=== PATIENT | female | born 1935 | race Caucasian/White ===

== ENCOUNTER 2016-09-10 14:02 | Inpatient (IN) | payer MEDICARE ==
[2016-09-10] MEDS ORDERED: methylPREDNISolone SOD SUCCI 125 MG/2 ML VIAL IV STA (14:49)
[2016-09-10] MEDS ORDERED: IPRATROPIUM-ALBUTEROL 3 ML NEB INHALATION STA (14:49)
[2016-09-10] MEDS ORDERED: SODIUM CHLORIDE 0.9% 500 ML IV STA (14:49)
[2016-09-10] MEDS ORDERED: SODIUM CHLORIDE 0.9% 1,000 ML IV STA (14:49)
--- NOTE | 2016-09-10 15:20 | ED ---
General Adult HPI - General Chief complaint: Shortness of Breath Stated complaint: SOB/sent by Dr Trotter Time Seen by Provider: 09/10/16 14:14 Source: patient, RN notes reviewed, old records reviewed Mode of arrival: wheelchair Limitations: no limitations - History of Present Illness Initial comments: This is a 81-year-old female ER for evaluation of shortness of breath, severe shortness of breath with exertion. Patient is comp. Restrained heart history including A. fib with RVR, COPD and end-stage emphysema, right-sided lung CA with no treatment. Patient has had increasing exertional shortness of breath, physical point where she cannot make it from couch to chair. From bed to bathroom. Patient becomes significantly short of breath. She is on home O2 but currently states that she is just becoming too short of breath. - Related Data Home Medications Medication Instructions Recorded Confirmed Apixaban [Eliquis] 2.5 mg PO BID 06/20/14 09/10/16 Amiodarone [Cordarone] 200 mg PO DAILY 10/02/14 09/10/16 Albuterol Sulfate [Proair Hfa] 2 puff INHALATION RT-Q4H PRN 09/10/16 09/10/16 Fluticasone/Salmeterol [Advair 1 puff INHALATION RT-BID 09/10/16 09/10/16 500-50 Diskus] Ipratropium-Albuterol Nebulize 3 ml INHALATION RT-QID 09/10/16 09/10/16 [Duoneb 0.5 mg-3 mg/3 ml Soln] Previous Rx's Medication Instructions Recorded Lisinopril [Zestril] 2.5 mg PO DAILY #30 tab 02/22/14 Metoprolol Tartrate [Lopressor] 25 mg PO TID #90 tab 02/22/14 Allergies Allergy/AdvReac Type Severity Reaction Status Date / Time codeine Allergy Dyspnea Verified 09/10/16 15:42 Iodinated Contrast Media - Allergy Rash/Hives Verified 09/10/16 15:42 Oral and Penicillins Allergy Unknown Verified 09/10/16 15:42 Childhood propoxyphene napsylate Allergy Unknown Verified 09/10/16 15:42 [From Ani-N] shellfish derived [Shellfish] Allergy Rash/Hives Verified 09/10/16 15:42 ketorolac tromethamine AdvReac Nausea Verified 09/10/16 15:42 [From Toradol] Review of Systems ROS Statement: Those systems with pertinent positive or pertinent negative responses have been documented in the HPI. ROS Other: All systems not noted in ROS Statement are negative. Past Medical History Past Medical History: Atrial Fibrillation, Asthma, COPD, Pneumonia, Pulmonary Embolus (PE), Thyroid Disorder Additional Past Medical History / Comment(s): home O2, 2L. History of Any Multi-Drug Resistant Organisms: None Reported Past Surgical History: Breast Surgery Additional Past Surgical History / Comment(s): THYROIDECTOMY, CERVICAL NECK SURGERY Past Anesthesia/Blood Transfusion Reactions: No Reported Reaction Past Psychological History: No Psychological Hx Reported Smoking Status: Former smoker Past Alcohol Use History: None Reported Past Drug Use History: None Reported - Past Family History Father Family Medical History: No Reported History Mother Family Medical History: Unable to Obtain General Exam Limitations: no limitations General appearance: alert, in distress, cachectic Head exam: Present: atraumatic, normocephalic, normal inspection Eye exam: Present: normal appearance, PERRL, EOMI. Absent: scleral icterus, conjunctival injection, periorbital swelling ENT exam: Present: mucous membranes dry Neck exam: Present: normal inspection. Absent: tenderness, meningismus, lymphadenopathy Respiratory exam: Present: normal lung sounds bilaterally, wheezes, accessory muscle use, decreased breath sounds, prolonged expiratory. Absent: respiratory distress, rales, rhonchi, stridor Cardiovascular Exam: Present: regular rate, normal rhythm, normal heart sounds. Absent: systolic murmur, diastolic murmur, rubs, gallop, clicks GI/Abdominal exam: Present: soft, normal bowel sounds. Absent: distended, tenderness, guarding, rebound, rigid Extremities exam: Present: normal inspection, full ROM, normal capillary refill. Absent: tenderness, pedal edema, joint swelling, calf tenderness Back exam: Present: normal inspection Neurological exam: Present: alert, oriented X3, CN II-XII intact Psychiatric exam: Present: normal affect, normal mood Skin exam: Present: warm, dry, intact, normal color. Absent: rash Course Vital Signs 09/10/16 09/10/16 09/10/16 14:04 14:53 15:10 Temperature 98.1 F Pulse Rate 79 76 Respiratory 20 20 Rate Blood Pressure 198/93 O2 Sat by Pulse 96 Oximetry 09/10/16 09/10/16 15:29 16:19 Temperature 98.3 F Pulse Rate 76 70 Respiratory 18 Rate Blood Pressure 180/84 O2 Sat by Pulse Oximetry - Reevaluation(s) Reevaluation #1: 09/10/16 15:22 Patient does have improvement after breathing treatment Medical Decision Making - Medical Decision Making 81 female to the ER with COPD, A. fib, lung CA, patient be admitted for COPD exacerbation and exertional dyspnea. Patient will consult pulmonary has needed. Patient was placed on breathing treatments and steroids - Lab Data Result diagrams: 09/10/16 15:10 09/10/16 15:10 Lab Results 09/10/16 09/10/16 09/10/16 Range/Units 15:10 15:10 15:10 WBC 6.8 (3.8-10.6) k/uL RBC 4.55 (3.80-5.40) m/uL Hgb 14.4 (11.4-16.0) gm/dL Hct 41.1 (34.0-46.0) % MCV 90.5 (80.0-100.0) fL MCH 31.6 (25.0-35.0) pg MCHC 35.0 (31.0-37.0) g/dL RDW 13.2 (11.5-15.5) % Plt Count 330 (150-450) k/uL Neutrophils % 84 % Lymphocytes % 8 % Monocytes % 5 % Eosinophils % 0 % Basophils % 1 % Neutrophils # 5.7 (1.3-7.7) k/uL Lymphocytes # 0.5 L (1.0-4.8) k/uL Monocytes # 0.3 (0-1.0) k/uL Eosinophils # 0.0 (0-0.7) k/uL Basophils # 0.0 (0-0.2) k/uL PT (9.0-12.0) sec INR (<1.1) APTT (22.0-30.0) sec Sodium 136 L (137-145) mmol/L Potassium 4.2 (3.5-5.1) mmol/L Chloride 91 L (98-107) mmol/L Carbon Dioxide 33 H (22-30) mmol/L Anion Gap 12 mmol/L BUN 12 (7-17) mg/dL Creatinine 0.60 (0.52-1.04) mg/dL Est GFR (MDRD) Af Amer >60 (>60 ml/min/1.73 sqM) Est GFR (MDRD) Non-Af >60 (>60 ml/min/1.73 sqM) Glucose 96 (74-99) mg/dL Calcium 9.6 (8.4-10.2) mg/dL Magnesium 1.9 (1.6-2.3) mg/dL Total Bilirubin 0.9 (0.2-1.3) mg/dL AST 33 (14-36) U/L ALT 28 (9-52) U/L Alkaline Phosphatase 108 (38-126) U/L Total Creatine Kinase 79 (30-135) U/L CK-MB (CK-2) 2.9 H* (0.0-2.4) ng/mL CK-MB (CK-2) Rel Index 3.7 Troponin I <0.012 (0.000-0.034) ng/mL NT-Pro-B Natriuret Pep pg/mL Total Protein 8.2 (6.3-8.2) g/dL Albumin 4.7 (3.5-5.0) g/dL Urine Color Urine Appearance (Clear) Urine pH (5.0-8.0) Ur Specific Franklin (1.001-1.035) Urine Protein (Negative) Urine Glucose (UA) (Negative) Urine Ketones (Negative) Urine Blood (Negative) Urine Nitrite (Negative) Urine Bilirubin (Negative) Urine Urobilinogen (<2.0) mg/dL Ur Leukocyte Esterase (Negative) Urine RBC (0-5) /hpf Urine WBC (0-5) /hpf Ur Squamous Epith Cells (0-4) /hpf Urine Mucus (None) /hpf 09/10/16 09/10/16 09/10/16 Range/Units 15:10 15:10 15:10 WBC (3.8-10.6) k/uL RBC (3.80-5.40) m/uL Hgb (11.4-16.0) gm/dL Hct (34.0-46.0) % MCV (80.0-100.0) fL MCH (25.0-35.0) pg MCHC (31.0-37.0) g/dL RDW (11.5-15.5) % Plt Count (150-450) k/uL Neutrophils % % Lymphocytes % % Monocytes % % Eosinophils % % Basophils % % Neutrophils # (1.3-7.7) k/uL Lymphocytes # (1.0-4.8) k/uL Monocytes # (0-1.0) k/uL Eosinophils # (0-0.7) k/uL Basophils # (0-0.2) k/uL PT 10.2 (9.0-12.0) sec INR 1.0 (<1.1) APTT 24.2 (22.0-30.0) sec Sodium (137-145) mmol/L Potassium (3.5-5.1) mmol/L Chloride (98-107) mmol/L Carbon Dioxide (22-30) mmol/L Anion Gap mmol/L BUN (7-17) mg/dL Creatinine (0.52-1.04) mg/dL Est GFR (MDRD) Af Amer (>60 ml/min/1.73 sqM) Est GFR (MDRD) Non-Af (>60 ml/min/1.73 sqM) Glucose (74-99) mg/dL Calcium (8.4-10.2) mg/dL Magnesium (1.6-2.3) mg/dL Total Bilirubin (0.2-1.3) mg/dL AST (14-36) U/L ALT (9-52) U/L Alkaline Phosphatase (38-126) U/L Total Creatine Kinase (30-135) U/L CK-MB (CK-2) (0.0-2.4) ng/mL CK-MB (CK-2) Rel Index Troponin I (0.000-0.034) ng/mL NT-Pro-B Natriuret Pep 1190 pg/mL Total Protein (6.3-8.2) g/dL Albumin (3.5-5.0) g/dL Urine Color Light Yellow Urine Appearance Clear (Clear) Urine pH 7.0 (5.0-8.0) Ur Specific Franklin 1.008 (1.001-1.035) Urine Protein Negative (Negative) Urine Glucose (UA) Negative (Negative) Urine Ketones Negative (Negative) Urine Blood Negative (Negative) Urine Nitrite Negative (Negative) Urine Bilirubin Negative (Negative) Urine Urobilinogen <2.0 (<2.0) mg/dL Ur Leukocyte Esterase Small H (Negative) Urine RBC <1 (0-5) /hpf Urine WBC 3 (0-5) /hpf Ur Squamous Epith Cells 1 (0-4) /hpf Urine Mucus Rare H (None) /hpf - Radiology Data Radiology results: report reviewed (Chest x-ray is negative for acute disease), image reviewed Disposition Clinical Impression: COPD exacerbation, Afib, Acute exacerbation of chronic obstructive airways disease, Lung cancer Disposition: ADMITTED IP TO THIS HOSP Condition: Fair Referrals: Alphonso Trotter DO [Primary Care Provider] - 1-2 days
[2016-09-10 15:44] LABS: Basophils % (A) 1 %; CH 30.5; CHCM 33.9; Eosinophils % (A) 0 %; HCT 41.1 % (34.0-46.0); HDW 2.75; HGB 14.4 gm/dL (11.4-16.0); Luc # (Auto) 0.14; Luc % (Auto) 2; Lymphocytes # (A) 0.5 k/uL (1.0-4.8); Lymphocytes % (A) 8 %; MCH 31.6 pg (25.0-35.0); MCV 90.5 fL (80.0-100.0); Monocytes # (A) 0.3 k/uL (0-1.0); Monocytes % (A) 5 %; Neutrophils # (A) 5.7 k/uL (1.3-7.7); Neutrophils % (A) 84 %; RBC 4.55 m/uL (3.80-5.40); RDW 13.2 % (11.5-15.5); WBC 6.8 k/uL (3.8-10.6); WBC (Perox) 6.82
[2016-09-10 15:48] LABS: Partial Thromboplastin Time 24.2 sec (22.0-30.0); Prothrombin Time 10.2 sec (9.0-12.0)
[2016-09-10 15:49] LABS: Appearance,Urine Clear (Clear); Bilirubin,Urine Negative (Negative); Glucose,Urine (UA) Negative (Negative); Ketones,Urine Negative (Negative); Leukocyte Esterase,Urine Small (Negative); Mucus,Urine Rare /hpf; Nitrite,Urine Negative (Negative); Particle Count 1118; Protein,Urine Negative (Negative); RBC,Urine <1 /hpf (0-5); Specific Gravity,Urine 1.008 (1.001-1.035); Squamous Epithelial Cell,Urine 1 /hpf (0-4); UA Billing (MACRO vs. MICRO) MICRO; Urobilinogen,Urine <2.0 mg/dL (<2.0); WBC,Urine 3 /hpf (0-5)
[2016-09-10 15:50] LABS: ALT 28 U/L (9-52); AST 33 U/L (14-36); Alkaline Phosphatase 108 U/L (38-126); Anion Gap 12 mmol/L; Blood Urea Nitrogen 12 mg/dL (7-17); Calcium 9.6 mg/dL (8.4-10.2); Carbon Dioxide 33 mmol/L (22-30); Chloride 91 mmol/L (98-107); Glucose 96 mg/dL (74-99); Magnesium 1.9 mg/dL (1.6-2.3); Non-African American GFR(MDRD) >60 (>60 ml/min/1.73 sqM); Potassium 4.2 mmol/L (3.5-5.1); Sodium 136 mmol/L (137-145); Total Bilirubin 0.9 mg/dL (0.2-1.3); Total Protein 8.2 g/dL (6.3-8.2)
--- NOTE | 2016-09-10 16:06 | XR ---
EXAMINATION TYPE: XR chest 2V DATE OF EXAM: 09/10/2016 3:59 PM COMPARISON: 08/08/2015 HISTORY: 81-year-old female difficulty breathing TECHNIQUE: PA and lateral views FINDINGS: Heart is normal size. Mild elongation of the thoracic aorta is unchanged with atherosclerotic calcifi cations. Hyperinflation with interstitial prominence. Focal right upper lobe opacity is redemonstrate d and appears to have increased in density slightly. No consolidation or pleural effusion. IMPRESSION: 1. COPD with advanced emphysema. 2. Focal right upper lobe opacity appears slightly more pronounced. Correlate with prior workup to ex clude underlying neoplasm. We note that the lesion is being followed by pulmonary on CT of 12/17/2015.
[2016-09-10 16:48] LABS: Creatine Kinase 79 U/L (30-135)
[2016-09-10 17:01] LABS: Troponin I <0.012 ng/mL (0.000-0.034)
[2016-09-10 17:02] LABS: Creatine Kinase MB 2.9 ng/mL (0.0-2.4)
[2016-09-10] MEDS: SODIUM CHLORIDE 0.9% 1,000 ML IV SCH (19:35)
[2016-09-10] MEDS: FAMOTIDINE 20 MG TAB PO SCH (20:50)
[2016-09-10] MEDS: METOPROLOL TARTRATE 25 MG TAB PO SCH (20:51)
[2016-09-10] MEDS: APIXABAN 2.5 MG TABLET PO SCH (20:51)
[2016-09-10] MEDS ORDERED: AMIODARONE 200 MG TAB PO SCH (21:00)
--- NOTE | 2016-09-10 21:58 | HP ---
DATE OF ADMISSION: 09/10/2016 Patient is a 81-year-old female who came in with complaints of shortness of breath. Patient does have a history of COPD; uses 2 L of oxygen at home. Patient at present is on 3 L. Patient was already given breathing treatments, with improvement in her symptoms. Her other main symptom is generalized weakness, which has been worsening for some time. Patient does have history of atrial fibrillation, on anticoagulation with Eliquis. Patient's heart rate is well controlled at this point of time. Patient has end-stage COPD. Patient has known right upper lung mass which has been followed as an outpatient. Biopsy was never done because of high risk of ( ). This nodule has been growing, and there is a high probability of malignancy. Patient's generalized weakness and cachexia is most probably secondary to cancer ( ) COPD. Patient although is not sure whether she has lost weight recently. ROS: All other systems were reviewed and were negative. Home medications include: 1. Eliquis. 2. Amiodarone. 3. Albuterol. 4. Fluticasone. 5. Ipratropium. 6. Lisinopril. 7. Metoprolol. ALLERGIES: 1. CODEINE. 2. IODINATED RADIOCONTRAST. 3. PROPOXYPHENE. 4. SHELLFISH. 5. KETOROLAC. Past medical history is significant for: 1. Atrial fibrillation. 2. COPD. 3. Pneumonia. 4. Pulmonary embolus in the past. 5. Hypothyroidism. 6. Breast cancer. SOCIAL HISTORY: Former smoker. Quit smoking years ago. Denied any alcohol abuse or any drug abuse. FAMILY HISTORY: Patient is not aware of her mother's or father's history. PHYSICAL EXAMINATION: VITAL SIGNS: Temperature 98.1, pulse of 76, respiratory rate of 20. Blood pressure is 198/93. Saturating at 96% on room air. GENERAL: ( ) HEENT: Pupils are round and equally reacting to light. EOMI. No scleral icterus. No conjunctival pallor. Normocephalic, atraumatic. No pharyngeal erythema. No thyromegaly. CARDIOVASCULAR: S1 and S2 present. No murmurs, rubs, or gallops. PULMONARY: Minimal expiratory wheezing was appreciated ( ) decreased air entry into bilateral lung kelley. ABDOMEN: Soft, nontender, nondistended, normoactive bowel sounds. No palpable organomegaly. MUSCULOSKELETAL: No joint swelling or deformity. EXTREMITIES: No cyanosis, clubbing, or pedal edema. NEUROLOGICAL: Gross neurological examination did not reveal any focal deficits. SKIN: No rashes. LABORATORY DATA: CBC, CMP essentially within normal limits. Bicarbonate of 33 secondary to chronic carbon dioxide retention and metabolic alkalosis. Chest x-ray was reviewed. It did not show any pneumonic process. Patient denied any cough. REVIEW OF SYSTEMS: CONSTITUTIONAL: No fever, no malaise, no fatigue. HEENT: No recent visual problems or hearing problems. Denied any sore throat. CARDIOVASCULAR: No chest pain, orthopnea, PND, no palpitations, no syncope. PULMONARY: As described in HPI. GASTROINTESTINAL: No diarrhea, no nausea, no vomiting, no abdominal pain. Normoactive bowel sounds. NEUROLOGICAL: No headaches, no weakness, no numbness. HEMATOLOGICAL: Denies any bleeding or petechiae. GENITOURINARY: Denies any burning micturition, frequency, or urgency. MUSCULOSKELETAL/RHEUMATOLOGICAL: Denies any joint pain, swelling, or any muscle pain. ENDOCRINE: Denies any polyuria or polydipsia. GENERAL: As described in HPI. The rest of the 14 point review of systems is negative. ASSESSMENT AND PLAN: 1. Acute on chronic hypercapnic respiratory failure secondary to chronic obstructive pulmonary disease exacerbation. Patient is ( ) 2. Atrial fibrillation, rate controlled. Patient will be initiated back on her amiodarone and beta rosemary along with Eliquis. 3. History of pulmonary embolism in the past. 4. Possible lung cancer with a nodule in the right upper lung which has been growing. Will consult Pulmonary regarding this. It is being followed as an outpatient by Dr. Trotter, although since its diagnosis it has kept on growing. Patient's primary care physician is Dr. Alphonso Trotter. [facility]
[2016-09-11] MEDS ORDERED: methylPREDNISolone SOD SUCCI 125 MG/2 ML VIAL IV SCH
[2016-09-11] MEDS: SYMBICORT 160-4.5 MCG INHALER INHALATION SCH ×2 (02:06→08:54)
[2016-09-11] MEDS: IPRATROPIUM-ALBUTEROL 3 ML NEB INHALATION SCH ×4 (02:06→17:30)
[2016-09-11] MEDS: SODIUM CHLORIDE 0.9% 1,000 ML IV SCH ×2 (04:53→17:16)
[2016-09-11] MEDS ORDERED: AMIODARONE 200 MG TAB PO SCH ×2 (09:00→16:00)
[2016-09-11] MEDS ORDERED: predniSONE 20 MG TAB PO SCH (09:00)
[2016-09-11 09:17] VITALS: TEMP 97.9
[2016-09-11] MEDS: METOPROLOL TARTRATE 25 MG TAB PO SCH ×2 (09:23→17:15)
[2016-09-11] MEDS: APIXABAN 2.5 MG TABLET PO SCH (09:23)
[2016-09-11] MEDS: FAMOTIDINE 20 MG TAB PO SCH (09:23)
[2016-09-11 09:34] VITALS: RESP 18
[2016-09-11 11:42] VITALS: BMI 15.5
--- NOTE | 2016-09-11 12:49 | P.CNPUL ---
History of Present Illness Consult date: 09/11/16 Requesting physician: Vineet Sherman Reason for consult: dyspnea, lung mass, abnormal CXR/CT Chief complaint: Shortness of breath History of present illness: This is a very pleasant 81-year-old female patient with a known history of atrial fibrillation,pulmonary embolism, hypothyroidism and severe oxygen dependent Gold stage IV chronic obstructive pulmonary disease. She has a remote history of smoking. She also follows with Dr. Paredes in our office and has a known right upper lung spiculated mass. According to the patient he did not feel she was a candidate for biopsy or treatment based on her poor lung condition. He did offer to send her for a second opinion to Dr. Dick at [facility] however the patient has not been able to have transportation there and had not followed up there. she presented here to the emergency room yesterday with increasing shortness of breath, cough and congestion. She does have significant shortness of breath with minimal exertion. She does at times have some hemoptysis. Her current weight is approximately 90 pounds. She is quite cachectic. Her chest x-ray reveals evidence of advanced emphysema along with a enlarging right upper lobe opacity suspicious for underlying neoplasm. Her most recent computed tomography scan of the chest was in November 2015 that revealed the mass measuring 3.4 x 3.5 cm versus initial readings in 2013 of 1.2 x 1.2 cm. Presently, the patient is seen in the oncology unit resting fairly comfortably in bed. She is dyspneic on minimal conversation. She is quite weak. She is maintaining good O2 saturations in the upper 90s on 2 L/m per nasal cannula. She's been afebrile. No leukocytosis. Bicarb 33. Review of Systems 14 point review of system was conducted. All negative other than as mentioned in the HPI. Past Medical History Past Medical History: Atrial Fibrillation, Asthma, Heart Failure, COPD, Pneumonia, Pulmonary Embolus (PE), Thyroid Disorder Additional Past Medical History / Comment(s): endstage emphysema,lung mass right lung, home O2 2l n/c per past med chart from 2012 [facility],divertivular disease, ddd, blood clots.shingles -2011, macular degeneration, bronchits, kidney stone, past allergy testing. nstemi 2014 History of Any Multi-Drug Resistant Organisms: None Reported Past Surgical History: Adenoidectomy, Breast Surgery, Tonsillectomy Additional Past Surgical History / Comment(s): partial thyroidectomy-tumor removed was benign, colonoscopy, bronchoscopy, CERVICAL NECK SURGERY, cataracts , rt breast cyst removed, lt lumpectomy-benign Past Anesthesia/Blood Transfusion Reactions: Postoperative Nausea & Vomiting ( PONV) Additional Past Anesthesia/Blood Transfusion Reaction / Comment(s): difficulty waking Past Psychological History: No Psychological Hx Reported Additional Psychological History / Comment(s): lives in own home-single staory w /2 steps. no outside services Smoking Status: Former smoker Past Alcohol Use History: None Reported Additional Past Alcohol Use History / Comment(s): started smoking at age 20 smoked 1 ppd, quit 2009 Past Drug Use History: None Reported - Past Family History Brother(s) Family Medical History: Cancer Additional Family Medical History / Comment(s): non hodgkind lymphoma Father Family Medical History: No Reported History Additional Family Medical History / Comment(s): 10 days shy of 100 years old- from "old age" Mother Family Medical History: Dementia Additional Family Medical History / Comment(s): at age 98 Medications and Allergies Home Medications Medication Instructions Recorded Confirmed Type Apixaban [Eliquis] 2.5 mg PO BID 06/20/14 09/10/16 History Amiodarone [Cordarone] 200 mg PO DAILY 10/02/14 09/10/16 History Albuterol Sulfate [Proair Hfa] 2 puff INHALATION RT-Q4H PRN 09/10/16 09/10/16 History Fluticasone/Salmeterol [Advair 1 puff INHALATION RT-BID 09/10/16 09/10/16 History 500-50 Diskus] Ipratropium-Albuterol Nebulize 3 ml INHALATION RT-QID 09/10/16 09/10/16 History [Duoneb 0.5 mg-3 mg/3 ml Soln] Allergies Allergy/AdvReac Type Severity Reaction Status Date / Time codeine Allergy Dyspnea Verified 09/10/16 15:42 Iodinated Contrast Media - Allergy Rash/Hives Verified 09/10/16 15:42 Oral and Penicillins Allergy Unknown Verified 09/10/16 15:42 Childhood propoxyphene napsylate Allergy Unknown Verified 09/10/16 15:42 [From Darvocet-N] shellfish derived [Shellfish] Allergy Rash/Hives Verified 09/10/16 15:42 ketorolac tromethamine AdvReac Nausea Verified 09/10/16 15:42 [From Toradol] Physical Exam Vitals: Vital Signs Temp Pulse Pulse Resp BP BP Pulse Ox 09/11/16 09:01 60 09/11/16 08:45 60 09/11/16 08:00 18 09/11/16 07:00 97.9 F 61 22 130/61 100 09/10/16 23:00 98.1 F 60 20 125/73 99 09/10/16 21:20 96 09/10/16 19:19 99.0 F 61 18 166/71 98 09/10/16 16:19 98.3 F 70 18 180/84 09/10/16 15:29 76 Intake and Output 09/10/16 09/11/16 09/11/16 22:59 06:59 14:59 Intake Total 100 800 Balance 100 800 Intake: IV 100 800 Sodium Chloride 0.9% 1, 100 800 000 ml @ 100 mls/hr IV . Q10H [facility] Rx#:[id number] Other: Voiding Method Toilet Toilet # Voids 1 Weight 43.5 kg 43.5 kg Patient Weight 09/12/16 06:59 Weight 43.5 kg Results - Laboratory Findings CBC and BMP: 09/10/16 15:10 09/10/16 15:10 PT/INR, D-dimer PT 10.2 sec (9.0-12.0) 09/10/16 15:10 INR 1.0 (<1.1) 09/10/16 15:10 - Diagnostic Findings Chest x-ray: image reviewed Assessment and Plan Plan: Impression: #1 Acute exacerbation of severe oxygen dependent Gold stage IV chronic obstructive pulmonary disease. #2 Enlarging right upper lobe spiculated lesion highly suspicious for malignancy. #3 Malnutrition, anorexia/cachexia syndrome. #4 Remote history of chronic tobacco dependence. #5 Paroxysmal atrial fibrillation, anticoagulated with apixaban. #6 Hypothyroidism secondary to thyroidectomy. #7 History of pulmonary embolism. Plan: The patient was seen and evaluated by Dr. Gibson. We had a lengthy discussion with the patient regarding her enlarging suspicious right upper lobe lung lesion. The patient would be a poor candidate for any intervention at this point. We will treat her for her COPD exacerbation optimize her medication. She 'll have further follow-up with Dr. Trotter in our office and again possibly obtain an opinion from Dr. Dick at [facility]. The patient's overall prognosis is quite poor based on her multiple comorbidities and severe end- stage lung disease. We'll continue to follow. Time with Patient: Greater than 30
[2016-09-11 17:18] VITALS: BP 137/72
[2016-09-11 17:33] VITALS: PULSE 72
--- NOTE | 2016-09-12 07:31 | DS ---
DATE OF ADMISSION: 09/10/2016 DATE OF DISCHARGE: 09/11/2016 DISCHARGE SUMMARY/PROGRESS NOTE: 81-year-old who came in with complaints of ( ) is admitted with COPD exacerbation. Patient respiratory status is at her baseline. Patient has fairly good air entry into bilateral lung kelley. Patient is awaiting evaluation of pulmonary. Patient has a mass in the right upper lung most probably malignancy. Patient has clubbing as well. We will get opinion of Dr. Gibson regarding the lung mass, if it is reasonable to biopsy it. Patient has generalized weakness. We will also get binder caser evaluation and PT and OT evaluation. Patient may not require rehabilitation at this time but eventually since the cancer is not being treated which she most probably has lung cancer. Patient is awaiting evaluation from Dr. Gibson. Once his evaluation is done, patient probably will be discharged. Patient may not require subacute rehabilitation or custodial at this point of time. Eventually she will require as once her cancer progresses, she is going to get progressively weak. Patient was seen and examined on the day of discharge. Vital signs stable. PHYSICAL EXAMINATION: GENERAL: The patient is alert and oriented x3, not in any acute distress. Well developed, well nourished. HEENT: Pupils are round and equally reacting to light. EOMI. No scleral icterus. No conjunctival pallor. Normocephalic, atraumatic. No pharyngeal erythema. No thyromegaly. CARDIOVASCULAR: S1 and S2 present. No murmurs, rubs, or gallops. PULMONARY: Chest is clear to auscultation, no wheezing or crackles. ABDOMEN: Soft, nontender, nondistended, normoactive bowel sounds. No palpable organomegaly. MUSCULOSKELETAL: No joint swelling or deformity. EXTREMITIES: No cyanosis, clubbing, or pedal edema. NEUROLOGICAL: Gross neurological examination did not reveal any focal deficits. SKIN: No rashes. LABORATORY DATA: None available from today. No significant change from yesterday. FINAL DIAGNOSES: 1. Acute on chronic hypercapnic respiratory failure secondary to chronic obstructive pulmonary disease acute exacerbation. The patient is at her baseline. 2. Atrial fibrillation, rate controlled on Eliquis. 3. History of pulmonary embolism in the past. 4. Possible lung cancer with nodule in the right upper lobe and mild to moderate protein calorie malnutrition. Patient will be discharged on Ensure Plus. Patient will follow with Dr. Alphonso Trotter in 2 to 7 days, ( ) in about 3 to 7 days.
== END 2016-09-11 18:20 | disposition home or self-care (01) | DRG 190 ==
LOC: EC 14:02 → 5ONC 15:20
PROVIDERS: ADMIT Internal Medicine; ATTEND Internal Medicine
DX: J44.1 Chronic obstructive pulmonary disease with (acute) exacerbation (principal); J96.22 Acute and chronic respiratory failure with hypercapnia; E44.0 Moderate protein-calorie malnutrition; C34.90 Malignant neoplasm of unspecified part of unspecified bronchus or lung; I50.9 Heart failure, unspecified; J45.909 Unspecified asthma, uncomplicated; I48.0 Paroxysmal atrial fibrillation; E89.0 Postprocedural hypothyroidism; I25.2 Old myocardial infarction; K57.90 Diverticulosis of intestine, part unspecified, without perforation or abscess without bleeding; H35.30 Unspecified macular degeneration; Z68.1 Body mass index [BMI] 19.9 or less, adult; Z79.01 Long term (current) use of anticoagulants; Z79.899 Other long term (current) drug therapy; Z87.891 Personal history of nicotine dependence; Z99.81 Dependence on supplemental oxygen; Z88.5 Allergy status to narcotic agent; Z91.041 Radiographic dye allergy status; Z80.7 Family history of other malignant neoplasms of lymphoid, hematopoietic and related tissues
CPT/HCPCS: 36415; 71020; 80053; 81001; 82550; 82553; 83735; 83880; 84484; 85025; 85610; 85730; 87040; 94640; 94760; 96361; 96374; 99285